=== PATIENT | female | born 1970 | race Caucasian/White ===

== ENCOUNTER 2016-11-17 23:08 | Emergency (ER) | payer SELFPAY ==
[~2016-11-17] VITALS: Ht 149.9 cm; Wt 81.8 kg
[2016-11-17] MEDS ORDERED: IBUP-1547 PO (23:19)
[2016-11-17] MEDS ORDERED: AMOX250C4 PO (23:19)
[2016-11-17] MEDS ORDERED: KETOROLAC TROMETHAMINE 60 MG/2 ML VIAL IM ONE (23:30)
[2016-11-17] MEDS ORDERED: HYDROCODONE/ACETAMINOPHEN 5-325 MG TABLET PO ONE (23:30)
[2016-11-17] MEDS ORDERED: INSULIN REGULAR, HUMAN 100 UNITS/ML SQ ONE (23:30)
[2016-11-17 23:31] LABS: GLUCOSE,POINT OF CARE 424 MG/DL (70-110)
[2016-11-18 00:26] VITALS: BP 139/75
[2016-11-18 00:32] LABS: GLUCOSE,POINT OF CARE 379 MG/DL (70-110)
== END 2016-11-18 00:29 | disposition home or self-care (01) ==
LOC: EMS 23:13
DX: K02.9 Dental caries, unspecified (principal); E11.65 Type 2 diabetes mellitus with hyperglycemia; I10 Essential (primary) hypertension
CPT/HCPCS: 82962; 96372; 99284; J1815; J1885